=== PATIENT | male | born 1975 | race African-American/Black ===

== ENCOUNTER 2020-07-21 22:34 | Emergency (ER) | payer SELFPAY | END 2020-07-21 23:35 | disposition home or self-care (01) | LOC: BURERS 22:34 | DX: J30.9 Allergic rhinitis, unspecified (principal); H10.13 Acute atopic conjunctivitis, bilateral; H73.893 Other specified disorders of tympanic membrane, bilateral; Z79.899 Other long term (current) drug therapy | CPT/HCPCS: 99283 ==